=== PATIENT | male | born 1950 | race Two or more races ===

== ENCOUNTER → 2017-04-27 | Outpatient (CLI) | payer OTHER | END | disposition home or self-care (01) | LOC: LAB 11:26 | DX: R97.20 Elevated prostate specific antigen [PSA] (principal) ==

== ENCOUNTER 2017-06-01 07:26 | Outpatient (CLI) | payer OTHER | END 2017-06-01 15:12 | disposition home or self-care (01) | LOC: SONOGRAMA 07:26 | DX: R97.20 Elevated prostate specific antigen [PSA] (principal) ==

== ENCOUNTER 2017-06-13 09:23 | Outpatient (CLI) | payer OTHER | END 2017-06-13 14:11 | disposition home or self-care (01) | LOC: TOM 09:23 | DX: C61 Malignant neoplasm of prostate (principal); R31.29 Other microscopic hematuria ==

== ENCOUNTER 2017-06-13 12:09 | Outpatient (CLI) | payer OTHER | END 2017-06-13 14:51 | disposition home or self-care (01) | LOC: NUCLEAR 12:09 | DX: I82.502 Chronic embolism and thrombosis of unspecified deep veins of left lower extremity (principal) ==

== ENCOUNTER 2017-10-26 08:36 | Outpatient (CLI) | payer OTHER | END 2017-10-26 08:51 | disposition home or self-care (01) | LOC: LAB 08:36 | DX: C61 Malignant neoplasm of prostate (principal) ==

== ENCOUNTER 2021-11-28 07:41 | Emergency (ER) | payer OTHER ==
[~2021-11-28] VITALS: Ht 170.2 cm; Wt 74.8 kg
== END 2021-11-28 11:20 ==
LOC: ER 07:41
DX: U07.1 COVID-19 (principal); I10 Essential (primary) hypertension; C61 Malignant neoplasm of prostate

== ENCOUNTER 2022-07-09 09:43 | Outpatient (CLI) | payer OTHER | END 2022-07-09 09:49 | disposition home or self-care (01) | LOC: RAD 09:43 | PROVIDERS: ATTEND Specialist | DX: J45.991 Cough variant asthma (principal) ==

== ENCOUNTER 2023-01-19 08:32 | Outpatient (CLI) | payer OTHER | END 2023-01-19 08:37 | disposition home or self-care (01) | LOC: RAD 08:32 | PROVIDERS: ATTEND Internal Medicine | DX: Z01.811 Encounter for preprocedural respiratory examination (principal); J30.89 Other allergic rhinitis ==

== ENCOUNTER 2023-08-17 11:16 | Outpatient (CLI) | payer OTHER | END 2023-08-17 11:23 | disposition home or self-care (01) | LOC: MRI 11:16 | PROVIDERS: ATTEND Specialist | DX: M17.9 Osteoarthritis of knee, unspecified (principal); M86.9 Osteomyelitis, unspecified; M22.90 Unspecified disorder of patella, unspecified knee | CPT/HCPCS: 73721 ==

== ENCOUNTER 2023-09-04 07:27 | Emergency (ER) | payer OTHER ==
[~2023-09-04] VITALS: Ht 170.2 cm; Wt 78.9 kg
[2023-09-04] MEDS ORDERED: CRESTOR20 MG PO (07:58)
[2023-09-04] MEDS ORDERED: DIOVAN40 MG PO (07:58)
[2023-09-04 09:00] LABS: HEMATOCRIT 40.5 % (39.0-48.0); HEMOGLOBIN 13.8 g/dL (13-16.00); MEAN CELL VOLUME 94.3 fL (80.0-100.00); MEAN CORPUSCULAR HEMOGLOBIN 32.3 pg (27.00-32.0); MEAN CORPUSCULAR HGB CONC 34.2 g/dl (32.0-36.0); PLATELET COUNT 154 K/uL (150-450); RED BLOOD COUNT 4.29 M/uL (4.00-6.00)
== END 2023-09-04 10:14 | disposition home or self-care (01) ==
LOC: ER 07:28
DX: U07.1 COVID-19 (principal); R53.81 Other malaise

== ENCOUNTER 2023-09-09 11:04 | Emergency (ER) | payer OTHER ==
[~2023-09-09] VITALS: Ht 170.2 cm; Wt 77.6 kg
[~2023-09-09 11:04] MED LIST: CRESTOR20 MG PO; DIOVAN40 MG PO
[2023-09-09] MEDS ORDERED: METHYLPREDNISOLONE SOD SUCC 125 MG VIAL IV STA (12:20)
[2023-09-09] MEDS ORDERED: levoFLOXacin IN DEXTROSE 5 % 5 MG/ML PIGGYBAG IV STA (12:23)
[2023-09-09] MEDS ORDERED: 0.9 % SODIUM CHLORIDE 1,000 ML IV STA (12:24)
[2023-09-09] MEDS ORDERED: IPRATROPIUM BROMIDE 0.5 MG/2.5 ML AMPUL.NEB IH SCH (12:30)
[2023-09-09] MEDS ORDERED: BUDESONIDE 0.5 MG/2 ML AMPUL.NEB IH SCH (12:30)
[2023-09-09] MEDS ORDERED: LEVALBUTEROL HCL 1.25 MG/3 ML SOLUTION IH SCH (12:30)
[2023-09-09 12:45] LABS: ABG PH 7.433 (7.35-7.45); ABG PO2 97.5 mmHg (80-100); ABG pCO2 34.3 mmHg (35-45); BASE EXCESS -1.1 mmol/l; BICARBONATE 22.5 mmol/l (23-25); SaO2 97.8 %; Tco2 23.5 mmol/l
[2023-09-09 13:12] LABS: allen test SATISFACTORY; o2 21 %; puncture site RADIAL RIGHT
[2023-09-09] MEDS ORDERED: METHYLPREDNISOLONE SOD SUCC 125 MG VIAL ONE (13:34)
[2023-09-09 13:50] LABS: HEMOGLOBIN 14.2 g/dL (13-16.00); MEAN CELL VOLUME 94.5 fL (80.0-100.00); MEAN CORPUSCULAR HEMOGLOBIN 32.6 pg (27.00-32.0); MEAN CORPUSCULAR HGB CONC 34.5 g/dl (32.0-36.0); PLATELET COUNT 254 K/uL (150-450); RED BLOOD COUNT 4.34 M/uL (4.00-6.00); RED CELL DISTRIBUTION WIDTH 13.5 % (11.5-14.5)
[2023-09-09] MEDS ORDERED: LEVALBUTEROL HCL 1.25 MG/3 ML SOLUTION IH ONE ×2 (14:13→14:31)
[2023-09-09] MEDS ORDERED: IPRATROPIUM BROMIDE 0.5 MG/2.5 ML AMPUL.NEB IH ONE ×2 (14:13→14:31)
[2023-09-09 14:39] LABS: ALBUMIN 3.7 gm/dL (3.4-5.0); BILIRUBIN TOTAL 0.52 mg/dL (0.3-1.2); CALCIUM 9.4 mg/dL (8.5-10.1); CREATININE SERUM 0.89 mg/dL (0.70-1.30); GFR 83.79; GLOBULINA 4.1 G/DL (2.4-3.5); POTASSIUM 4.26 mEq/L (3.5-5.1); TOTAL PROTEIN 7.8 gm/dL (6.4-8.2)
== END 2023-09-09 16:29 | disposition home or self-care (01) ==
LOC: ER 11:05
PROVIDERS: General Practice
DX: U07.1 COVID-19 (principal); R53.81 Other malaise; J45.909 Unspecified asthma, uncomplicated
CPT/HCPCS: 36415; 71046; 82803; 94640; 96365; 96366; 99283; J3490 ×2; J7030

== ENCOUNTER 2023-09-21 08:37 | Outpatient (CLI) | payer OTHER | END 2023-09-21 08:46 | disposition home or self-care (01) | LOC: SONOGRAMA 08:37 | PROVIDERS: ATTEND Specialist | DX: K76.0 Fatty (change of) liver, not elsewhere classified (principal); R74.01 Elevation of levels of liver transaminase levels ==

== ENCOUNTER 2023-11-03 07:58 | Outpatient (CLI) | payer OTHER | END 2023-11-03 08:03 | disposition home or self-care (01) | LOC: TOM 07:58 | PROVIDERS: ATTEND Internal Medicine Gastroenterology | DX: R10.13 Epigastric pain (principal) | CPT/HCPCS: 74178; Q9965 ==

== ENCOUNTER 2024-03-15 11:41 | Outpatient (CLI) | payer OTHER | END 2024-03-15 11:45 | disposition home or self-care (01) | LOC: RAD 11:41 | PROVIDERS: ATTEND Specialist | DX: J45.998 Other asthma (principal) ==